=== PATIENT | female | born 1990 | race Two or more races ===

== ENCOUNTER 2021-01-24 12:10 | Emergency (ER) | payer OTHER ==
[~2021-01-24] VITALS: Ht 149.9 cm; Wt 56.2 kg
[2021-01-24] MEDS ORDERED: BACTRIM DS TAB1 EACH PO (16:17)
[2021-01-24] MEDS ORDERED: INTESTINEX680 M1 PO (16:17)
== END 2021-01-24 16:47 ==
LOC: ER 12:10
DX: L02.411 Cutaneous abscess of right axilla (principal)